=== PATIENT | female | born 1980 | race Caucasian/White ===

== ENCOUNTER → 2016-07-08 | Outpatient (CLI) | payer MEDICAID ==
[2016-07-08 17:11] LABS: CHLORIDE,CL 111 mmol/L (98-110); SODIUM,NA 142 mmol/L (136-146)
== END ==
LOC: MW.CHFP 16:15
PROVIDERS: ATTEND Physician Assistant
DX: Z01.812 Encounter for preprocedural laboratory examination (principal)
CPT/HCPCS: 36415; 80048; 81025; 85025

== ENCOUNTER 2016-07-14 09:39 | Day surgery (SDC) | payer MEDICAID ==
[~2016-07-14 09:39] MED LIST: Lactated Ringers 1,000 ML IV SCH; Lidocaine 2% 5 ML SDV ONE; Midazolam 1 MG/ML 2 ML SDV ONE; Propofol 200 MG/20 ML SDV ONE; ceFAZolin 2 GM in Premix Bag 1 BAG IV SCH; fentaNYL 100 MCG/2 ML SDV ONE
--- NOTE | 2016-07-14 10:39 | PCM.PREANE ---
Preanesthetic Assessment - Anesthesia/Transfusion/Family Hx Anesthesia History: Prior Anesthesia Without Reaction Family History of Anesthesia Reaction: No Transfusion History: No Prior Transfusion(s) Intubation History: Unknown - Review of Systems General: No Symptoms Pulmonary: No Symptoms Cardiovascular: No Symptoms Gastrointestinal: No symptoms Neurological: No Symptoms Other: Reports: None - Physical Assessment Height: 1.64 m Weight: 132.449 kg ASA Class: 2 Mental Status: Alert & Oriented x3 Airway Class: Mallampati = 2 Dentition: Reports: Normal Dentition Thyro-Mental Finger Breadths: 3 Mouth Opening Finger Breadths: 3 ROM/Head Extension: Full Lungs: Clear to auscultation, Normal respiratory effort Cardiovascular: Regular Rate, Regular Rhythm - Allergies Allergies/Adverse Reactions: Allergies Allergy/AdvReac Type Severity Reaction Status Date / Time latex Allergy Rash Verified 07/10/16 12:50 miconazole Allergy Rash Verified 07/10/16 12:50 [From Neosporin AF] NSAIDS (Non-Steroidal Allergy Other Verified 07/10/16 12:50 Anti-Inflamma tramadol Allergy Vomiting Verified 07/10/16 12:50 paper tape Allergy Rash Uncoded 07/10/16 12:50 - Blood Blood Available: No - Anesthesia Plan Pre-Op Medication Ordered: None - Acknowledgements Anesthesia Type Planned: General Anesthesia Pt an Appropriate Candidate for the Planned Anesthesia: Yes Alternatives and Risks of Anesthesia Discussed w Pt/Guardian: Yes Pt/Guardian Understands and Agrees with Anesthesia Plan: Yes PreAnesthesia Questionnaire HEENT History: Reports: Allergic rhinitis Cardiovascular History: Reports: None Respiratory History: Reports: Asthma Other Respiratory History: exercised induced, has had not had trouble for years Gastrointestinal History: Reports: None Genitourinary History: Reports: None 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 Musculoskeletal History: Reports: Fracture (right ankle), Fibromyalgia Neurological History: Reports: None Psychiatric History: Reports: None Endocrine/Metabolic History: Reports: Obesity/BMI 30+, Other (see below) Other Endocrine/Metabolic History: has Systemic Lupus Erythematosus Hematologic History: Reports: Other (see below) Other Hematologic History: Factor V Leiden deficiency Immunologic History: Reports: SLE (not on any medications for years, occasional nauzea and joint swelling) Oncologic (Cancer) History: Reports: None Dermatologic History: Reports: None - Past Surgical History Head Surgeries/Procedures: Reports: None HEENT Surgical History: Reports: Oral surgery Other HEENT Surgeries/Procedures: wisdom teeth Cardiovascular Surgical History: Reports: None Respiratory Surgical History: Reports: None GI Surgical History: Reports: None Female Surgical History: Reports: D&C Endocrine Surgical History: Reports: None Neurological Surgical History: Reports: None Musculoskeletal Surgical History: Reports: None Oncologic Surgical History: Reports: None - SUBSTANCE USE Smoking Status *Q: Former Smoker Tobacco Use Within Last Twelve Months: Cigarettes Recreational Drug Use History: No - HOME MEDS Home Medications: Home Meds Hydrocodone/Acetaminophen [Hydrocodon-Acetaminophn 10-325] 1 tab PO ASDIRECTED PRN 07/10/16 [History] - CURRENT (IN HOUSE) MEDS Current Meds: Current Medications Hydrocodone Bitart/Acetaminophen ([place] 325-10 Mg) 1 - 2 tab PO Q4H PRN PRN Reason: Pain Lactated Ringer's (Ringers, Lactated) 1,000 mls @ 100 mls/hr IV ASDIRECTED COMPA Last Admin: 07/14/16 06:30 Dose: 100 mls/hr Cefazolin Sodium/Dextrose 2 gm (/ Premix) 50 mls @ 100 mls/hr IV ONCALL [facility] Discontinued Medications Fentanyl (Sublimaze) Confirm Administered Dose 100 mcg .ROUTE .STK-MED ONE Stop: 07/14/16 09:07 Lidocaine (Xylocaine-Mpf 2%) Confirm Administered Dose 5 ml .ROUTE .STK-MED ONE Stop: 07/14/16 09:07 Midazolam HCl (Versed 1 Mg/Ml) Confirm Administered Dose 2 mg .ROUTE .STK-MED ONE Stop: 07/14/16 09:07 Propofol (Diprivan 20 Ml) Confirm Administered Dose 200 mg .ROUTE .STK-MED ONE Stop: 07/14/16 09:07
[2016-07-14] MEDS ORDERED: HYDROmorphone 2 MG/ML Syringe ONE ×2 (11:39→12:03)
[2016-07-14] MEDS ORDERED: Ondansetron 4 MG/2 ML SDV ONE (12:24)
--- NOTE | 2016-07-14 12:44 | PCM.OPNOTE ---
- General Post-Op/Procedure Note Date of Surgery/Procedure: 07/14/16 Operative Procedure(s): ORIF right distal fibula Post-Op Diagnosis: R distal fibula fracture Anesthesia Technique: General ET tube Primary Surgeon: Flora Braga Software Requirements Engineer: Zuleyka Funk in mLs: 25 Condition: Good Free Text/Narrative:: tt=10 min #[id number]
[2016-07-14] MEDS: fentaNYL 100 MCG/2 ML SDV IVPUSH PRN ×2 (13:11→13:18)
--- NOTE | 2016-07-14 15:00 | PCM48HPAN ---
Post Anesthesia Note - EVALUATION WITHIN 48HRS OF ANESTHETIC Vital Signs in Normal Range: Yes Patient Participated in Evaluation: Yes Respiratory Function Stable: Yes Airway Patent: Yes Cardiovascular Function Stable: Yes Hydration Status Stable: Yes Pain Control Satisfactory: Yes Nausea and Vomiting Control Satisfactory: Yes Mental Status Recovered: Yes - COMMENTS/OBSERVATIONS Free Text/Narrative:: Pain well controlled. Improving N/V.
--- NOTE | 2016-07-14 16:19 | CR ---
EXAMINATION: Right ankle HISTORY: ORIF COMPARISON: 07/06/2016 TECHNIQUE: 5 fluoroscopic images provided. FINDINGS/IMPRESSION: Intraoperative control films demonstrate screw and plate fixation of a distal f ibular fracture in near-anatomic alignment.
[2016-07-14] MEDS ORDERED: Ondansetron 4 MG/2 ML SDV IVPUSH ONE (16:22)
[2016-07-14] MEDS ORDERED: Promethazine 25 MG/ML SDV IM ONE (16:45)
[2016-07-14] MEDS: Acetaminophen/HYDROcodone 325-10 MG Tab PO PRN ×2 (17:09→21:14)
[2016-07-14] MEDS ORDERED: Ondansetron 4 MG Tab PO PRN (17:15)
[2016-07-14] MEDS ORDERED: Lactated Ringers 1,000 ML IV SCH (17:15)
--- NOTE | 2016-07-14 17:47 | PCM.SN ---
- Free Text/Narrative Note: Called by Hortensia MOON, pt continues to have severe N/V. She has been unable to get out of the bed post op. Pt states she is hurting, but doesn't want to take any pain medications right now. Phenergan 12.5mg IM and [place] 10/325 x 1 was eventually also given. Pt states her nausea is a little better. Pt was able to finally ambulate with assistance one time to the bathroom. Will be transferred to [facility] for continued observation.
--- NOTE | 2016-07-14 21:34 | OR ---
SURGEON: Flora Braga MD DATE OF PROCEDURE: 07/14/2016 PREOPERATIVE DIAGNOSIS: Right distal fibula fracture, unstable. POSTOPERATIVE DIAGNOSIS: Right distal fibula fracture, unstable. PROCEDURE: Open reduction and internal fixation, right distal fibula. TANK OPERATOR: Zuleyka Funk PA-C and Joaquín Irizarry PA-C. ANESTHESIA: General. ESTIMATED BLOOD LOSS: 25 mL. TOURNIQUET TIME: 10 minutes. COMPLICATIONS: None. DVT PROPHYLAXIS: PAS boot to the nonoperative leg. IMPLANTS USED: Richa distal fibula plate with combination of 3.5 mm locking and nonlocking screws. BRIEF HISTORY: Consent under is a 35-year-old female who injured her right ankle last week. X- rays obtained showed a displaced right distal fibula fracture with widening of the medial ankle mortise. At that time, I recommended surgical treatment. Risks and goals of procedure were discussed with the patient and documented preoperatively. She was evaluated preoperatively by a primary care provider, as she does have a history of factor 5 Leiden mutation. They recommended that the patient be started on Lovenox after the surgery until she her cast is discontinued. DESCRIPTION OF PROCEDURE: The patient was properly identified and brought to the operating room. She was transferred from the OR cart and placed on the operating table in supine position. General anesthesia was administered. After adequate anesthesia was obtained, a well-padded tourniquet was applied to the right lower extremity. The right lower extremity was then prepped in standard fashion using ChloraPrep solution. It was then sterilely draped. A time-out was performed to ensure correct site and procedure. Preoperative antibiotics were given. The surgical site had been marked preoperatively. An Esmarch was used to exsanguinate the right lower extremity and the tourniquet was inflated to 250 mmHg. An incision was made over the lateral aspect of the ankle. As the subcutaneous tissues were being dissected, she did have extensive bleeding. There was a large vein that was identified and the ends of the vein were tied off. She continued to have quite a bit of oozing from the wound and the tourniquet was inflated to 300 mmHg, as it appeared to be a venous tourniquet. I continued dissecting through the soft tissues looking for the superficial peroneal nerve. This was not encountered. She continued to have quite a bit of oozing and the tourniquet was deflated at the 10 minute point. There was minimal bleeding once the tourniquet was deleted. The fracture was then identified. The fracture hematoma was evacuated with irrigation. The fracture was then reapproximated using a bone reduction clamp. Interfragmentary screw was then placed, which provided good provisional fixation. The short distal fibula plate was then placed onto the distal fibula. The C-arm showed adequate positioning of the plate also showed good reduction the fracture with spiritism of the fibular length. A 3.5 mm locking screws were used distally and 3.5 mm nonlocking screws were used proximally. Final C-arm images confirmed good position of the plate and hardware. The ankle mortise was symmetric. I did use live fluoroscopy to check the syndesmosis following reduction of the fracture. I did use live fluoroscopy with both an external rotation stress view and a bone hook. No widening of the syndesmosis was noted. The wound was then copiously irrigated with saline solution. The deep tissues were closed with 0 Vicryl. The subcutaneous tissues were closed with 2-0 Vicryl and the skin was closed with lul. Xeroform gauze was placed over the wound and a bulky dressing was applied. She was then placed into a well-padded posterior splint with medial and lateral stabilizing slabs. The patient was awakened from her anesthetic and transferred back to the operating room cart. She was brought to recovery room in stable condition. All needle and sponge counts were correct. JULES / BRYANT /[id number]
[2016-07-14 22:09] VITALS: BP 174/95
== END 2016-07-14 22:00 | disposition home or self-care (01) ==
LOC: MW.SDS 09:39 → MW.MS 16:50 → MW.SDS 22:00
PROVIDERS: ATTEND Orthopaedic Surgery
PROC: 0QSG04Z Reposition Right Tibia with Internal Fixation Device, Open Approach (ICD-10-PCS; principal; 2016-07-14)
DX: S82.831A Other fracture of upper and lower end of right fibula, initial encounter for closed fracture (principal); D68.51 Activated protein C resistance; M32.9 Systemic lupus erythematosus, unspecified; J45.909 Unspecified asthma, uncomplicated; F17.210 Nicotine dependence, cigarettes, uncomplicated; E66.9 Obesity, unspecified; Z88.1 Allergy status to other antibiotic agents; Z88.6 Allergy status to analgesic agent; Z91.040 Latex allergy status; Z91.048 Other nonmedicinal substance allergy status; Z98.890 Other specified postprocedural states; Z68.42 Body mass index [BMI] 45.0-49.9, adult
CPT/HCPCS: 27792; 76000; 81025; A9270; C1713; J0690; J1170; J2250; J2405; J2550; J3010; J7120; 01480; J2704

== ENCOUNTER 2016-07-15 18:46 | Emergency (ER) | payer MEDICAID ==
--- NOTE | 2016-07-15 21:10 | EDM.PDOC ---
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 right lower leg Pain Score (Numeric/FACES): 10 - Related Data Allergies Allergy/AdvReac Type Severity Reaction Status Date / Time latex Allergy Rash Verified 07/15/16 19:07 miconazole Allergy Rash Verified 07/15/16 19:07 [From Neosporin AF] NSAIDS (Non-Steroidal Allergy Other Verified 07/15/16 19:07 Anti-Inflamma tramadol Allergy Vomiting Verified 07/15/16 19:07 paper tape Allergy Rash Uncoded 07/15/16 19:07 Home Meds: Home Meds Hydrocodone/Acetaminophen [Hydrocodon-Acetaminophn 10-325] 1 tab PO ASDIRECTED PRN #80 tablet 07/14/16 [Rx] Past Medical History HEENT History: Reports: Allergic rhinitis Cardiovascular History: Reports: None Respiratory History: Reports: Asthma Other Respiratory History: exercised induced, has had not had trouble for years Gastrointestinal History: Reports: None Genitourinary History: Reports: None 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 Musculoskeletal History: Reports: Fracture, Fibromyalgia Neurological History: Reports: None Psychiatric History: Reports: None Endocrine/Metabolic History: Reports: Obesity/BMI 30+, Other (see below) Other Endocrine/Metabolic History: has Systemic Lupus Erythematosus Hematologic History: Reports: Other (see below) Other Hematologic History: Factor V Leiden deficiency Immunologic History: Reports: SLE Oncologic (Cancer) History: Reports: None Dermatologic History: Reports: None - Infectious Disease History Infectious Disease History: Reports: None - Past Surgical History Head Surgeries/Procedures: Reports: None HEENT Surgical History: Reports: Oral surgery Other HEENT Surgeries/Procedures: wisdom teeth Cardiovascular Surgical History: Reports: None Respiratory Surgical History: Reports: None GI Surgical History: Reports: None Female Surgical History: Reports: D&C Endocrine Surgical History: Reports: None Neurological Surgical History: Reports: None Musculoskeletal Surgical History: Reports: None Oncologic Surgical History: Reports: None Social & Family History - Family History Family Medical History: Noncontributory - Tobacco Use Smoking Status *Q: Former Smoker Years of Tobacco use: 5 Packs/Tins Daily: 1 Used Tobacco, but Quit: No - Recreational Drug Use Recreational Drug Use: No Drug Use in Last 12 Months: No Review of Systems - Review of Systems Review Of Systems: ROS reveals no pertinent complaints other than HPI. Trauma Exam - Physical Exam Exam: See Below Exam Limited By: Other (pain) General Appearance: Reports: alert, severe distress (Due to right lower external the pain) Head: Reports: atraumatic, normocephalic Ears: Reports: normal external exam Nose: Reports: normal inspection Throat/Mouth: Reports: Normal inspection Neck: Reports: full range of motion Respiratory Exam: Reports: no respiratory distress, lungs clear, normal breath sounds Cardiovascular: Reports: normal peripheral pulses, regular rate, rhythm, no murmur GI/Abdominal: Reports: Soft Extremities: Other (Right lower leg is swollen and exquisitely tender. The lateral surgical site is mildly erythematous but no exudate. Pedal and posttibial pulses are strong and CMS is intact distally full range of motion of the toes without hesitation or limitation.) Skin: Reports: Normal color, Warm/dry Course - Vital Signs Last Recorded V/S: Last Vital Signs Temp 36.8 C 07/15/16 19:08 Pulse 90 07/15/16 21:38 Resp 18 07/15/16 21:38 BP 146/91 H 07/15/16 21:38 Pulse Ox 98 07/15/16 21:38 - Orders/Labs/Meds Meds: Medications Discontinued Medications Generic Name Dose Route Start Last Admin Trade Name Freq PRN Reason Stop Dose Admin Morphine Sulfate 10 mg 07/15/16 21:11 07/15/16 21:27 Morphine IM 07/15/16 21:12 10 mg ONETIME ONE Administration - Re-Assessments/Exams Free Text/Narrative Re-Assessment/Exam: 07/15/16 21:03 Dr. Thompson visited with Dr. Braga. Dr. Braga indicated that she was aware of the patient's postoperative pain. Her orders included pain medication in the emergency room, home with Percocet, elevate and see her in the a.m. in the clinic. Departure - Departure Time of Disposition: 21:16 Disposition: Home, Self-Care 01 Condition: fair Clinical Impression: Post-operative pain - Discharge Information Instructions: Pain Relief Preoperatively and Postoperatively Referrals: Flora Braga MD [Primary Care Provider] - Forms: ED Department Discharge Additional Instructions: 1. Elevate right lower extremity well above heart level at all times. 2. Cool packs 20 minutes every 3-4 hours 3. Take your pain medication every 4 hours as directed 4. See Dr. Braga in her clinic tomorrow morning. <ThompsonPao - Last Filed: 07/16/16 00:10> ED HPI GENERAL MEDICAL PROBLEM - History of Present Illness INITIAL COMMENTS - FREE TEXT/NARRATIVE: And history of present illness was inadvertently omitted on the document by the mid-level provider. This is Dr. Thompson and I have personally seen and evaluated the patient with the mid-level provider. The patient underwent surgery with Dr. Braga yesterday and contacted her to 2 increased pain and a prescription was called in for her and he did receive pain medications at another institution. She presented here today because of the persistent pain and concern. Physical exam is as described and on my personal valuation there was redness at the surround of the incision area and there is some dependent edema but there is no fluctuance or drainage appreciated and no streaking up the leg. The patient is nontoxic and afebrile. I did discuss this case with Dr. Braga and she will see the patient in the clinic tomorrow and requests that no labs or antibiotics be given at this time and she will reevaluate in the morning. They do give the patient something for pain here and a prescription for home.
[2016-07-15] MEDS ORDERED: Morphine 10 MG/ML Syringe IM ONE (21:11)
[2016-07-15 21:47] VITALS: BP 146/91
== END 2016-07-15 21:38 | disposition home or self-care (01) ==
LOC: MW.ED 18:46
DX: G89.18 Other acute postprocedural pain (principal); J45.909 Unspecified asthma, uncomplicated; E66.9 Obesity, unspecified; M32.9 Systemic lupus erythematosus, unspecified; Z87.891 Personal history of nicotine dependence; Z88.5 Allergy status to narcotic agent; Z88.8 Allergy status to other drugs, medicaments and biological substances; Z91.040 Latex allergy status
CPT/HCPCS: 96372; 99283; J2270; 99284

== ENCOUNTER → 2016-07-24 | Outpatient (CLI) | payer MEDICAID ==
--- NOTE | 2016-07-24 13:56 | CR ---
EXAMINATION: Right ankle HISTORY: Pain COMPARISON: 07/06/2016 TECHNIQUE: 3 views FINDINGS/IMPRESSION: There is screw and plate fixation of the distal fibula. Ankle mortise and talar dome appear grossly preserved. Cast material obscures fine detail.
== END ==
LOC: MW.CHORTHO 07:42
PROVIDERS: ATTEND Physician Assistant
DX: M25.571 Pain in right ankle and joints of right foot (principal); Z96.7 Presence of other bone and tendon implants
CPT/HCPCS: 73610-26-RT; 73610-RT

== ENCOUNTER 2016-10-20 10:19 | Day surgery (SDC) | payer MEDICAID ==
[~2016-10-20 10:19] MED LIST changes: +Acetaminophen/HYDROcodone 325-5 MG Tab PO PRN; -Lidocaine 2% 5 ML SDV ONE; -Midazolam 1 MG/ML 2 ML SDV ONE; -Propofol 200 MG/20 ML SDV ONE; -fentaNYL 100 MCG/2 ML SDV ONE
[2016-10-20] MEDS ORDERED: Ondansetron 4 MG/2 ML SDV ONE (11:04)
[2016-10-20] MEDS ORDERED: Dexamethasone 4 MG/ML 5 ML MDV ONE (11:04)
[2016-10-20] MEDS ORDERED: fentaNYL 250 MCG/5 ML SDV ONE (11:04)
[2016-10-20] MEDS ORDERED: Midazolam 1 MG/ML 2 ML SDV ONE (11:04)
[2016-10-20] MEDS ORDERED: Propofol 200 MG/20 ML SDV ONE ×5 (11:04→12:22)
[2016-10-20] MEDS ORDERED: Scopolamine 1.5 MG Transdermal Patch TRDERM PRN (11:22)
--- NOTE | 2016-10-20 11:26 | PCM.PREANE ---
Preanesthetic Assessment - Anesthesia/Transfusion/Family Hx Anesthesia History: Prior Anesthesia Reaction (PONV) Type of Anesthesia Reaction: Excessive Nausea/Vomiting Transfusion History: No Prior Transfusion(s) Intubation History: Unknown - Review of Systems General: No Symptoms Pulmonary: No Symptoms Cardiovascular: No Symptoms Gastrointestinal: No Symptoms Neurological: No Symptoms Other: Reports: None - Physical Assessment NPO Status Date: 10/19/16 NPO Status Time: 23:30 O2 Sat by Pulse Oximetry: 97 Respiratory Rate: 16 Vital Signs: Last Vital Signs Temp 36.8 C 10/20/16 10:40 Pulse 69 10/20/16 10:40 Resp 16 10/20/16 10:40 BP 134/70 10/20/16 10:40 Pulse Ox 97 10/20/16 10:40 Height: 1.63 m Weight: 129.274 kg ASA Class: 2 Mental Status: Alert & Oriented x3 Dentition: Reports: Normal Dentition ROM/Head Extension: Full Lungs: Clear to Auscultation, Normal Respiratory Effort Cardiovascular: Regular Rate, Regular Rhythm - Lab Values: Laboratory Last Values WBC 6.53 K/uL (4.0-11.0) 10/20/16 10:55 RBC 4.47 M/uL (4.30-5.90) 10/20/16 10:55 Hgb 12.7 g/dL (12.0-16.0) 10/20/16 10:55 Hct 37.9 % (36.0-46.0) 10/20/16 10:55 MCV 84.8 fL (80.0-98.0) 10/20/16 10:55 MCH 28.4 pg (27.0-32.0) 10/20/16 10:55 MCHC 33.5 g/dL (31.0-37.0) 10/20/16 10:55 RDW Std Deviation 37.5 fl (28.0-62.0) 10/20/16 10:55 RDW Coeff of Lauren 12 % (11.0-15.0) 10/20/16 10:55 Plt Count 250 K/uL (150-400) 10/20/16 10:55 MPV 10.60 fL (7.40-12.00) 10/20/16 10:55 Neut % (Auto) 51.0 % (48.0-80.0) 10/20/16 10:55 Lymph % (Auto) 37.7 % (16.0-40.0) 10/20/16 10:55 [place] % (Auto) 9.0 % (0.0-15.0) 10/20/16 10:55 Eos % (Auto) 2.0 % (0.0-7.0) 10/20/16 10:55 Baso % (Auto) 0.3 % (0.0-1.5) 10/20/16 10:55 Neut # (Auto) 3.3 K/uL (1.4-5.7) 10/20/16 10:55 Lymph # (Auto) 2.5 K/uL (0.6-2.4) H 10/20/16 10:55 [place] # (Auto) 0.6 K/uL (0.0-0.8) 10/20/16 10:55 Eos # (Auto) 0.1 K/uL (0.0-0.7) 10/20/16 10:55 Baso # (Auto) 0.0 K/uL (0.0-0.1) 10/20/16 10:55 Nucleated RBC % 0.8 /100WBC 10/20/16 10:55 Nucleated RBCs # 0 K/uL 10/20/16 10:55 Urine HCG, Qual NEGATIVE (NEGATIVE) 10/20/16 10:40 - Allergies Allergies/Adverse Reactions: Allergies Allergy/AdvReac Type Severity Reaction Status Date / Time latex Allergy Rash Verified 07/15/16 19:07 miconazole Allergy Rash Verified 07/15/16 19:07 [From Neosporin AF] NSAIDS (Non-Steroidal Allergy Other Verified 07/15/16 19:07 Anti-Inflamma tramadol Allergy Vomiting Verified 07/15/16 19:07 paper tape Allergy Rash Uncoded 07/15/16 19:07 - Acknowledgements Anesthesia Type Planned: General Anesthesia Pt an Appropriate Candidate for the Planned Anesthesia: Yes Alternatives and Risks of Anesthesia Discussed w Pt/Guardian: Yes Pt/Guardian Understands and Agrees with Anesthesia Plan: Yes PreAnesthesia Questionnaire HEENT History: Reports: Allergic Rhinitis Cardiovascular History: Reports: None Respiratory History: Reports: Asthma Other Respiratory History: exercised induced, has had not had trouble for years Gastrointestinal History: Reports: None Genitourinary History: Reports: None MUSIC INTERNSHIP History: Reports: None Musculoskeletal History: Reports: Fracture (R ankle), Fibromyalgia Other Musculoskeletal History: hx of fx right ankle Neurological History: Reports: None Psychiatric History: Reports: Anxiety Endocrine/Metabolic History: Reports: Obesity/BMI 30+, Other (See Below) Other Endocrine/Metabolic History: has Systemic Lupus Erythematosus Hematologic History: Reports: Other (See Below) (Factor V deficiency, denies post op clot, lovonox ordered per surgeon) Other Hematologic History: Factor V Leiden deficiency Immunologic History: Reports: SLE Oncologic (Cancer) History: Reports: None Dermatologic History: Reports: None - Infectious Disease History Infectious Disease History: Reports: None - Past Surgical History Head Surgeries/Procedures: Reports: None HEENT Surgical History: Reports: Oral Surgery Other HEENT Surgeries/Procedures: wisdom teeth Cardiovascular Surgical History: Reports: None Respiratory Surgical History: Reports: None GI Surgical History: Reports: None Female Surgical History: Reports: D&C Endocrine Surgical History: Reports: None Neurological Surgical History: Reports: None Musculoskeletal Surgical History: Reports: None, ORIF Other Musculoskeletal Surgeries/Procedures:: right ankle Oncologic Surgical History: Reports: None - SUBSTANCE USE Smoking Status *Q: Current Some Day Smoker Tobacco Use Within Last Twelve Months: Cigarettes Recreational Drug Use History: No - CURRENT (IN HOUSE) MEDS Current Meds: Current Medications Hydrocodone Bitart/Acetaminophen ([place] 325-5 Mg) 1 - 2 tab PO Q4H PRN PRN Reason: Pain Lactated Ringer's (Ringers, Lactated) 1,000 mls @ 100 mls/hr IV ASDIRECTED COMPA Last Admin: 10/20/16 10:44 Dose: 100 mls/hr Cefazolin Sodium/Dextrose 2 gm (/ Premix) 50 mls @ 100 mls/hr IV ONETIME COMPA Discontinued Medications Dexamethasone (Dexamethasone) Confirm Administered Dose 20 mg .ROUTE .STK-MED ONE Stop: 10/20/16 11:05 Fentanyl (Sublimaze) Confirm Administered Dose 250 mcg .ROUTE .STK-MED ONE Stop: 10/20/16 11:05 Lidocaine HCl (Xylocaine-Mpf 1%) Confirm Administered Dose 5 ml .ROUTE .STK-MED ONE Stop: 10/20/16 11:05 Midazolam HCl (Versed 1 Mg/Ml) Confirm Administered Dose 2 mg .ROUTE .STK-MED ONE Stop: 10/20/16 11:05 Ondansetron HCl (Zofran) Confirm Administered Dose 4 mg .ROUTE .STK-MED ONE Stop: 10/20/16 11:05 Propofol (Diprivan 20 Ml) Confirm Administered Dose 200 mg .ROUTE .STK-MED ONE Stop: 10/20/16 11:05
[2016-10-20] MEDS ORDERED: Scopolamine 1.5 MG Transdermal Patch ONE (11:28)
--- NOTE | 2016-10-20 11:35 | PCM.SN ---
- Free Text/Narrative Note: pt examined, chart reviewed, case discussed with AUTO HEATER MECHANIC. PMH: PONV, asthma( exercise induces). 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 Having hardware removal for post op wound infection/dehissance. Plan : multiple antiemetics + propofol TIV.
[2016-10-20] MEDS ORDERED: ceFAZolin 1 GM Vial ONE (11:55)
[2016-10-20] MEDS ORDERED: Ketorolac 30 MG/ML SDV ONE (12:09)
--- NOTE | 2016-10-20 12:51 | PCM.OPNOTE ---
- General Post-Op/Procedure Note Date of Surgery/Procedure: 10/20/16 Operative Procedure(s): ED R ankle to muscle. HWR R ankle Post-Op Diagnosis: Nonhealing wound right ankle. Retained HW R ankle, s/p ORIF Anesthesia Technique: General LMA Primary Surgeon: Flora Braga Pari [employer] Ticket Seller: Joaquín Irizarry in mLs: 5 Condition: Good Free Text/Narrative:: tt=29 min #[id number]
[2016-10-20] MEDS ORDERED: fentaNYL 100 MCG/2 ML SDV IVPUSH PRN (13:04)
[2016-10-20] MEDS ORDERED: fentaNYL 100 MCG/2 ML SDV ONE (13:05)
--- NOTE | 2016-10-20 13:22 | PCM.POSTAN ---
POST ANESTHESIA ASSESSMENT - MENTAL STATUS Mental Status: Alert - RESPIRATORY Respiratory Status: Respiratory Rate WNL, Airway Patent, O2 Saturation Stable - CARDIOVASCULAR CV Status: Pulse Rate WNL, Blood Pressure Stable - GASTROINTESTINAL GI Status: No Symptoms - PAIN Pain Score: 0 - POST OP HYDRATION Hydration Status: Adequate & Stable - OBSERVATIONS Free Text/Narrative:: No N/V at this time.
--- NOTE | 2016-10-20 13:34 | CR ---
Procedural fluoroscopy 6.6 seconds of fluoroscopy time was used at operative procedure for orthopedic procedure. Impression: Procedural fluoroscopy as above
[2016-10-20 14:13] VITALS: BP 129/65
--- NOTE | 2016-10-20 14:27 | PCM48HPAN ---
Post Anesthesia Note - EVALUATION WITHIN 48HRS OF ANESTHETIC Vital Signs in Normal Range: Yes Patient Participated in Evaluation: Yes Respiratory Function Stable: Yes Airway Patent: Yes Cardiovascular Function Stable: Yes Hydration Status Stable: Yes Pain Control Satisfactory: Yes Nausea and Vomiting Control Satisfactory: Yes Mental Status Recovered: Yes
--- NOTE | 2016-10-20 19:28 | OR ---
SURGEON: Flora Braga MD DATE OF PROCEDURE: 10/20/2016 PREOPERATIVE DIAGNOSES: 1. Nonhealing wound, right ankle. 2. Retained hardware, right distal fibula, status post open reduction and internal fixation. POSTOPERATIVE DIAGNOSES: 1. Nonhealing wound, right ankle. 2. Retained hardware, right distal fibula, status post open reduction and internal fixation. PROCEDURE: 1. Excisional debridement, right ankle to muscle. 2. Hardware removal, right ankle, deep implant. SEAM RUBBING MACHINE OPERATOR: Joaquín Irizarry PA-C. ANESTHESIA: General. ESTIMATED BLOOD LOSS: 5 mL. TOURNIQUET TIME: 29 minute. COMPLICATIONS: None. DVT PROPHYLAXIS: Not indicated. IMPLANTS USED: None. BRIEF HISTORY: Renea is a 35-year-old female, who sustained a fracture of the distal fibula. She subsequently underwent open reduction and internal fixation of the distal fibula. She healed the fracture, however has had a persistent open wound over the midportion of her lateral incision. She was treated with a week of IV Cubicin which did help with her erythema and induration, however the wound persisted. I did recommend removal of the hardware with the debridement of the nonhealing wound. My concern was that she may develop osteomyelitis if this is left untreated. The risks and goals of the procedure were discussed with the patient and were documented preoperatively. She agreed to proceed. DESCRIPTION OF PROCEDURE: The patient was properly identified and brought to the operating room. She was transferred from the OR cart and placed on the operating table in supine position. General anesthesia was administered. After adequate anesthesia was obtained, a well-padded tourniquet was applied to the right lower extremity. The right lower extremity was then prepped in standard fashion using Betadine solution. It was then sterilely draped. A time-out was performed to ensure correct site and procedure. Preoperative antibiotics were given. The surgical site had been marked preoperatively. The tourniquet was inflated to 250 mmHg. An incision was made over the lateral aspect of the ankle. The open area measured approximately 8 mm x 10 mm. Fibrinous tissue was at the base and no hardware was exposed. The incision was extended in a distal and proximal fashion over the site of the previous incision. The subcutaneous tissues were incised and the plate was immediately visualized. The screws were then removed without difficulty including the interfragmentary screw. The plate was then removed as well. The fracture was well healed. The edges of the skin near the site of the open wound were debrided with a rongeur. A 15 blade scalpel was used to freshen the wound edges. The wound was then copiously irrigated with 6 L of normal saline using a Pulsavac circuit board inspector. At the completion, the wound was very clean. I did not note any sign of infection throughout the procedure and I elected not to do cultures as the wound bed did appear clean. The deep tissues were then closed with 0 Monocryl. The subcutaneous tissues were closed with 2-0 Monocryl and the skin was closed with lul. The tourniquet was then deflated. Xeroform gauze was placed over the wound and a bulky dressing was applied. She was awaken from her anesthetic and transferred back to the operating room cart. She was brought to recovery room in stable condition. All needle and sponge counts were correct. JULES / BRYANT /[id number]
== END 2016-10-20 14:15 | disposition home or self-care (01) ==
LOC: MW.SDS 10:19
PROVIDERS: ATTEND Orthopaedic Surgery
DX: T81.89XA Other complications of procedures, not elsewhere classified, initial encounter (principal); S82.831D Other fracture of upper and lower end of right fibula, subsequent encounter for closed fracture with routine healing; F17.210 Nicotine dependence, cigarettes, uncomplicated; J45.909 Unspecified asthma, uncomplicated; M32.9 Systemic lupus erythematosus, unspecified; D68.62 Lupus anticoagulant syndrome; D68.2 Hereditary deficiency of other clotting factors; F41.9 Anxiety disorder, unspecified; Z86.718 Personal history of other venous thrombosis and embolism; E66.9 Obesity, unspecified; Z88.1 Allergy status to other antibiotic agents; Z88.6 Allergy status to analgesic agent; Z88.8 Allergy status to other drugs, medicaments and biological substances; Z91.040 Latex allergy status; Z91.048 Other nonmedicinal substance allergy status; Z98.890 Other specified postprocedural states; Z68.42 Body mass index [BMI] 45.0-49.9, adult
CPT/HCPCS: 20680; 36415; 76000; 81025; 85025; 85652; 86140; A9270; J0690; J1100; J1885; J2250; J2405; J3010; J7120; 01480; 88300; J2704

== ENCOUNTER 2016-11-12 09:01 | Day surgery (SDC) | payer OTHER ==
[~2016-11-12 09:01] MED LIST changes: +DAPTOmycin 500 MG in Sodium Chloride 0.9% 10 ML IVPUSH SCH; +Lidocaine 2% 5 ML SDV ONE; +Midazolam 1 MG/ML 2 ML SDV ONE; +Ondansetron 4 MG/2 ML SDV ONE; +Propofol 200 MG/20 ML SDV ONE; +fentaNYL 100 MCG/2 ML SDV IVPUSH PRN; +fentaNYL 250 MCG/5 ML SDV ONE
--- NOTE | 2016-11-12 10:12 | PCM.PREANE ---
Preanesthetic Assessment - Procedure Proposed Procedure: Right ankle open wound treatment - Anesthesia/Transfusion/Family Hx Anesthesia History: Prior Anesthesia Without Reaction Family History of Anesthesia Reaction: No Intubation History: Unknown Additional History: Factor V deficiency, Lupus, Asthma, Fibromyalgia, Obesity and non-healing wound/ compliance issues; and multiple drug allergies. - Review of Systems General: Other (Obesity. fibromyalgia) Pulmonary: Other (hx asthma- exercise induced) Cardiovascular: No Symptoms Gastrointestinal: No Symptoms Neurological: Difficulty Walking (due to ankle) Other: Reports: None - Physical Assessment NPO Status Date: 11/11/16 NPO Status Time: 23:00 Height: 5 ft 4 in Weight: 290 lb ASA Class: 3 Mental Status: Alert & Oriented x3 Airway Class: Mallampati = 1 Dentition: Reports: Normal Dentition Thyro-Mental Finger Breadths: 3 (short neck) Mouth Opening Finger Breadths: 3 ROM/Head Extension: Full Lungs: Clear to Auscultation, Normal Respiratory Effort Cardiovascular: Regular Rate, Regular Rhythm, No Murmurs Other: PICC line right arm; one port in use - Lab Values: Laboratory Last Values Urine HCG, Qual NEGATIVE (NEGATIVE) 11/12/16 09:04 - Allergies Allergies/Adverse Reactions: Allergies Allergy/AdvReac Type Severity Reaction Status Date / Time ketorolac [From Toradol] Allergy due to Verified 11/11/16 12:17 blood clotting disoder latex Allergy Rash Verified 11/11/16 12:14 NSAIDS (Non-Steroidal Allergy due to Verified 11/11/16 12:16 Anti-Inflamma blood clotting disorder Tetracyclines Allergy Nausea and Verified 11/11/16 12:16 Vomiting tramadol Allergy Nausea and Verified 11/11/16 12:17 Vomiting paper tape Allergy Blisters Uncoded 11/11/16 12:16 - Blood Blood Available: No Product(s) Available: None - Acknowledgements Anesthesia Type Planned: General Anesthesia Pt an Appropriate Candidate for the Planned Anesthesia: Yes Alternatives and Risks of Anesthesia Discussed w Pt/Guardian: Yes Pt/Guardian Understands and Agrees with Anesthesia Plan: Yes PreAnesthesia Questionnaire HEENT History: Reports: None Respiratory History: Reports: Other (See Below) Other Respiratory History: sports induced asthma Genitourinary History: Reports: None CARGOMAN History: Reports: Musculoskeletal History: Reports: Fracture, Fibromyalgia Endocrine/Metabolic History: Reports: Obesity/BMI 30+ Hematologic History: Reports: Other (See Below) Other Hematologic History: factor V clotting disorder Immunologic History: Reports: Other (See Below) Other Immunologic History: Lupus Dermatologic History: Reports: Other (See Below) Other Dermatologic History: open wound to rt ankle - Past Surgical History Head Surgeries/Procedures: Reports: None HEENT Surgical History: Reports: Oral Surgery Other HEENT Surgeries/Procedures: wisdom teeth extraction Female Surgical History: Reports: D&C Musculoskeletal Surgical History: Reports: Other (See Below) Other Musculoskeletal Surgeries/Procedures:: ORIF rt fx ankle, hardware removal to rt ankle - SUBSTANCE USE Smoking Status *Q: Former Smoker Tobacco Use Within Last Twelve Months: Cigarettes Recreational Drug Use History: No - HOME MEDS Home Medications: Home Meds DAPTOmycin [Cubicin] 500 mg IV DAILY 11/11/16 [History] - CURRENT (IN HOUSE) MEDS Current Meds: Current Medications Hydrocodone Bitart/Acetaminophen (Adams 325-5 Mg) 1 - 2 tab PO Q4H PRN PRN Reason: Pain Fentanyl (Sublimaze) 50 mcg IVPUSH Q5M PRN PRN Reason: Pain (severe 7-10) Stop: 11/13/16 08:39 Lactated Ringer's (Ringers, Lactated) 1,000 mls @ 100 mls/hr IV ASDIRECTED COMPA Daptomycin 500 mg/ Sodium (Chloride) 10 mls @ 300 mls/hr IVPUSH ONCALL COMPA Discontinued Medications Fentanyl (Sublimaze) Confirm Administered Dose 250 mcg .ROUTE .STK-MED ONE Stop: 11/12/16 07:19 Cefazolin Sodium/Dextrose 2 gm (/ Premix) 50 mls @ 100 mls/hr IV ONCALL COMPA Daptomycin 500 mg/ Sodium (Chloride) 10 mls @ 300 mls/hr IVPUSH ONCALL [facility] Lidocaine (Xylocaine-Mpf 2%) Confirm Administered Dose 5 ml .ROUTE .STK-MED ONE Stop: 11/12/16 07:19 Midazolam HCl (Versed 1 Mg/Ml) Confirm Administered Dose 2 mg .ROUTE .STK-MED ONE Stop: 11/12/16 07:19 Ondansetron HCl (Zofran) Confirm Administered Dose 4 mg .ROUTE .STK-MED ONE Stop: 11/12/16 07:19 Propofol (Diprivan 20 Ml) Confirm Administered Dose 200 mg .ROUTE .[facility]-MED ONE Stop: 11/12/16 07:19
[2016-11-12] MEDS ORDERED: diphenhydrAMINE 50 MG/ML SDV ONE (12:20)
[2016-11-12] MEDS ORDERED: Scopolamine 1.5 MG Transdermal Patch ONE (12:20)
[2016-11-12] MEDS ORDERED: Dexamethasone 4 MG/ML 5 ML MDV ONE (12:20)
[2016-11-12] MEDS ORDERED: Metoclopramide 10 MG/2 ML SDV ONE (12:20)
--- NOTE | 2016-11-12 12:37 | PCM.OPNOTE ---
- General Post-Op/Procedure Note Date of Surgery/Procedure: 11/12/16 Operative Procedure(s): Excisional debridement right ankle with VAC placement Post-Op Diagnosis: Infected right ankle infection Anesthesia Technique: General LMA Primary Surgeon: Flora Braga Paralegal: Joaquín Irizarry in mLs: 10 Condition: Good Free Text/Narrative:: #[id number]
--- NOTE | 2016-11-12 12:38 | PCM.POSTAN ---
POST ANESTHESIA ASSESSMENT - MENTAL STATUS Mental Status: Alert, Oriented - RESPIRATORY Respiratory Status: Respiratory Rate WNL, Airway Patent, O2 Saturation Stable - CARDIOVASCULAR CV Status: Pulse Rate WNL, Blood Pressure Stable - GASTROINTESTINAL GI Status: No Symptoms - POST OP HYDRATION Hydration Status: Adequate & Stable
--- NOTE | 2016-11-12 13:06 | PCM48HPAN ---
Post Anesthesia Note - EVALUATION WITHIN 48HRS OF ANESTHETIC Vital Signs in Normal Range: Yes Patient Participated in Evaluation: Yes Respiratory Function Stable: Yes Airway Patent: Yes Cardiovascular Function Stable: Yes Hydration Status Stable: Yes Pain Control Satisfactory: Yes (Required PO analgesic as ordered by surgeon) Nausea and Vomiting Control Satisfactory: Yes Mental Status Recovered: Yes - COMMENTS/OBSERVATIONS Free Text/Narrative:: Plan to go home with sister during the next hour.
[2016-11-12 15:40] VITALS: BP 128/80
--- NOTE | 2016-11-12 18:59 | OR ---
SURGEON: Flora Braga MD DATE OF PROCEDURE: 11/12/2016 PREOPERATIVE DIAGNOSIS: Right ankle wound infection. POSTOPERATIVE DIAGNOSIS: Right ankle wound infection. PROCEDURE: Excisional debridement right open ankle wound to bone with placement of VAC dressing. HEALTH OUTCOMES LIAISON: Joaquín Irizarry PA-C. ANESTHESIA: General. ESTIMATED BLOOD LOSS: 10 mL. TOURNIQUET TIME: 0 minutes. COMPLICATIONS: None. DVT PROPHYLAXIS: Not indicated. IMPLANTS USED: None. BRIEF HISTORY: Renea is a 36-year-old female, who has previously undergone open reduction and internal fixation of a right distal fibula fracture. She developed a superficial wound infection following the healing of the fracture. She subsequently underwent excisional debridement with removal of hardware. Unfortunately, she developed a dehiscence of the wound following that surgery. She has been on IV antibiotics. She has had a PICC line placed. Due to her lack of response to conservative treatment, I did recommend surgical intervention. The risks and goals of procedure were discussed with the patient and were documented preoperatively. She agreed to proceed. DESCRIPTION OF PROCEDURE: The patient was properly identified and brought to the operating room. She was transferred from the OR cart and placed on the operating room table in supine position. General anesthesia was administered. After adequate anesthesia was obtained, the right lower extremity was prepped in standard fashion using Betadine solution. It was then sterilely draped. A time-out was performed to ensure correct site and procedure. Preoperative antibiotics were held. The surgical site had been marked preoperatively. The wound was inspected. She had fibrinous tissue overlying the wound bed. This was debrided with a Bazan elevator. The remaining Monocryl sutures were removed. The wound did open. Granulation tissue was present, however, this was quite grungy. No obvious purulence was noted. The wound did track down to the bone. I did take wound cultures, both aerobic and anaerobic, along with an aerobic bone culture. This was sent for culture and sensitivity. Cubicin antibiotic was then given. The wound was then copiously irrigated with 6 L of normal saline using a Pulsavac cloud consultant. At the completion, the wound bed appeared clean. The skin edges were freshened. The tissue was quite Donahue and tight around the wound. I did try to delineate a separate deep layer, which was closed with 0 PDS. I was able to get near complete coverage of the distal fibula with the soft tissue. The VAC dressing pad was then contoured to the shape of the wound. The wound was measured prior to placement of the wound VAC. This measured approximately 70 mm in the superior to inferior plane. It was 25 mm in the anterior to posterior plane and had a depth of 14 mm. The back dressing was then placed into the wound. The covering was placed and the VAC was hooked up. This showed good suction of the VAC sponge. There did not appear to be any air leaks. It was set at continuous suction with 125 mmHg. The patient was then awakened from her anesthetic. She was transferred back to the operating room cart. She was brought to recovery room in stable condition. JULES HURTADO /[id number]
== END 2016-11-12 14:10 | disposition home or self-care (01) ==
LOC: MERGE 09:01 → MW.SDS 09:01
PROVIDERS: ATTEND Orthopaedic Surgery
DX: T81.4XXA Infection following a procedure, initial encounter (principal); L93.0 Discoid lupus erythematosus; D68.62 Lupus anticoagulant syndrome; J45.909 Unspecified asthma, uncomplicated; M79.7 Fibromyalgia; Z88.1 Allergy status to other antibiotic agents; Z88.6 Allergy status to analgesic agent; Z88.8 Allergy status to other drugs, medicaments and biological substances; Z91.040 Latex allergy status; Z91.048 Other nonmedicinal substance allergy status; Z98.890 Other specified postprocedural states; Z87.891 Personal history of nicotine dependence
CPT/HCPCS: 11044; 36415; 81025; 85652; 86140; 87070; 87075; 87205; A9270; J1100; J1200; J2250; J2405; J2765; J3010; 00400; J2704

== ENCOUNTER 2020-01-12 19:55 | Emergency (ER) | payer MEDICAID, OTHER ==
--- NOTE | 2020-01-12 20:39 | EDM.PDOC ---
ED HPI GENERAL MEDICAL PROBLEM - General Chief Complaint: Lower Extremity Injury/Pain Stated Complaint: BLOOD CLOT IN LEG Time Seen by Provider: 01/12/20 20:17 Source of Information: Reports: Patient History Limitations: Reports: No Limitations - History of Present Illness INITIAL COMMENTS - FREE TEXT/NARRATIVE: HISTORY AND PHYSICAL: History of present illness: Patient is a 39-year-old female who presents to the emergency room with complaints of right lower extremity pain. She reports she has a history of factor V and easily gets blood clots. She hit her kyle on the corner of the bed a few days ago and now has pain to her distal calf going up to behind the knee. She had gone to an emergency room elsewhere and she was informed they did not have access to lab work or ultrasound and recommended she come for evaluation. She denies any other injury, trauma or falls. She denies any numbness, tingling, saddle paresthesias. Patient denies any fever, chills, headache, change in vision, syncope or near syncope. Denies any chest pain, back pain, shortness of breath or cough. Denies any abdominal pain, nausea, vomiting, diarrhea, constipation or dysuria. Has not noted any blood in urine or stool. Patient has been eating and drinking appropriately. Review of systems: As per history of present illness and below otherwise all systems reviewed and negative. Past medical history: As per history of present illness and as reviewed below otherwise noncontributory. Surgical history: As per history of present illness and as reviewed below otherwise noncontributory. Social history: See social history for further information Family history: As per history of present illness and as reviewed below otherwise noncontributory. Physical exam: General: Well developed and well nourished 39 year old female. Alert and orientated x 3. Nontoxic in appearance and in no acute distress. Vital signs are stable and have been reviewed by me. Nursing notes were reviewed. HEENT: Atraumatic, normocephalic, pupils equal and reactive bilaterally, negative for conjunctival pallor or scleral icterus, mucous membranes moist, trachea midline. No drooling or trismus noted. No meningeal signs. No hot potato voice noted. Lungs: Clear to auscultation, breath sounds equal bilaterally. Normal work of breathing, no accessory muscles used. Heart: S1S2, regular rate and rhythm without overt murmur Abdomen: Soft, obese, nontender. Negative for masses or hepatosplenomegaly. Negative for costovertebral tenderness. Skin: Small bruise to the right anteriolateral kyle. Intact, warm, dry. No lesions or rashes noted. Hematologic: No petechiae or purpra. Mucosa appropriate color and normal nail bed color and refill. Extremities: Moves all extremities per self without difficulty or deficits, mild right calf tenderness. No redness or soft tissue swelling noted. Strong -pedal and pretibial pulses bilaterally. +Cap refill less than 3 seconds (good blood flow).Neurovascular unremarkable. Neuro: Awake, alert, oriented. Cranial nerves II through XII unremarkable. Cerebellum unremarkable. Motor and sensory unremarkable throughout. Exam nonfocal. Psychiatric: Mood and affect are appropriate. Normal thought process. Answering questions appropriately. Notes: Patient does have a small bruise to the right anterior/lateral mid kyle. She states she bumped into a dresser a few days ago. She has mild tenderness to the calf but states that the whole leg hurts. Due to her reported factor V I will do an ultrasound of the lower extremity to rule out blood clot. There is no evidence of cellulitis or any other systemic concerns. Lab work is unremarkable. Ultrasound shows normal venous ultrasound exam. No evidence of deep vein thrombosis within the right lower extremity. I have talked with the patient about today's findings, in addition to providing specific details for plan of care. Reassessment at the time of disposition demonstrates that the patient is in no acute distress. The patient is stable for discharge, counseling was provided and we discussed in great detail signs and symptoms that would prompt them to return to the Emergency Department. Medication, follow up and supportive care measures were reviewed and discussed. Voices understanding and is agreeable to plan of care. Denies any further questions or concerns at this time. Diagnostics: CBC, CMP, INR, Venous Ultrasound Therapeutics: None Prescription: None Impression: Leg Pain, Right Plan: 1. Today your lab work and lower extremity ultrasound were within normal limits. Rest, ice and elevate as able. 2. Tylenol as needed for pain management. 3. We encourage you to follow up with your primary care provider and/or early childhood education specialist for re-evaluation and further care/management. If your symptoms should worsen, new symptoms develop or any of the signs and symptoms we discussed should arise please return to the emergency room or call 911 (if needed). Definitive disposition and diagnosis as appropriate pending reevaluation and review of above. Right Leg Pain Score (Numeric/FACES): 6 - Related Data Allergies Allergy/AdvReac Type Severity Reaction Status Date / Time ketorolac [From Toradol] Allergy due to Verified 01/12/20 20:59 blood clotting disoder latex Allergy Rash Verified 01/12/20 20:59 miconazole Allergy Rash Verified 01/12/20 20:59 [From Neosporin AF] NSAIDS (Non-Steroidal Allergy Other Verified 01/12/20 20:59 Anti-Inflamma Tetracyclines Allergy Nausea and Verified 01/12/20 20:59 Vomiting tramadol Allergy Vomiting Verified 01/12/20 20:59 paper tape Allergy Rash Uncoded 07/15/16 19:07 Home Meds: Home Meds . [No Known Home Meds] 01/12/20 [History] Past Medical History HEENT History: Reports: Allergic Rhinitis, None Cardiovascular History: Reports: None Respiratory History: Reports: Asthma, Other (See Below) Other Respiratory History: sports induced asthma Gastrointestinal History: Reports: None Genitourinary History: Reports: None VIDEO PRODUCTION INTERN History: Reports: None, Musculoskeletal History: Reports: Fibromyalgia, Fracture Other Musculoskeletal History: hx of fx right ankle Neurological History: Reports: None Psychiatric History: Reports: Anxiety Endocrine/Metabolic History: Reports: Other (See Below), Obesity/BMI 30+ Other Endocrine/Metabolic History: has Systemic Lupus Erythematosus Hematologic History: Reports: Other (See Below) Other Hematologic History: factor V clotting disorder Immunologic History: Reports: Other (See Below), SLE Other Immunologic History: Lupus Oncologic (Cancer) History: Reports: None Dermatologic History: Reports: None, Other (See Below) Other Dermatologic History: open wound to rt ankle - Infectious Disease History Infectious Disease History: Reports: None - Past Surgical History Musculoskeletal Surgical History: Reports: None, Other (See Below), ORIF Social & Family History - Family History Family Medical History: No Pertinent Family History - Caffeine Use Caffeine Use: Reports: Coffee Review of Systems - Review of Systems Review Of Systems: Comprehensive ROS is negative, except as noted in HPI. ED EXAM, GENERAL - Physical Exam Exam: See Below (See dictation) Course - Vital Signs Last Recorded V/S: Last Vital Signs Temp 98.2 F 01/12/20 22:42 Pulse 90 01/12/20 22:42 Resp 18 01/12/20 22:42 BP 132/80 01/12/20 22:42 Pulse Ox 97 01/12/20 22:42 - Orders/Labs/Meds Labs: Laboratory Tests 01/12/20 01/12/20 01/12/20 Range/Units 20:47 20:47 20:47 WBC 8.32 (4.0-11.0) K/uL RBC 4.59 (4.30-5.90) M/uL Hgb 13.5 (12.0-16.0) g/dL Hct 40.1 (36.0-46.0) % MCV 87.4 (80.0-98.0) fL MCH 29.4 (27.0-32.0) pg MCHC 33.7 (31.0-37.0) g/dL RDW Std Deviation 40.1 (28.0-62.0) fl RDW Coeff of Lauren 13 (11.0-15.0) % Plt Count 276 (150-400) K/uL MPV 10.90 (7.40-12.00) fL Neut % (Auto) 50.9 (48.0-80.0) % Lymph % (Auto) 36.3 (16.0-40.0) % Harvey % (Auto) 9.4 (0.0-15.0) % Eos % (Auto) 3.2 (0.0-7.0) % Baso % (Auto) 0.2 (0.0-1.5) % Neut # (Auto) 4.2 (1.4-5.7) K/uL Lymph # (Auto) 3.0 H (0.6-2.4) K/uL Harvey # (Auto) 0.8 (0.0-0.8) K/uL Eos # (Auto) 0.3 (0.0-0.7) K/uL Baso # (Auto) 0.0 (0.0-0.1) K/uL Nucleated RBC % 0.0 /100WBC Nucleated RBCs # 0 K/uL INR 0.98 Sodium 139 (136-145) mmol/L Potassium 3.7 (3.5-5.1) mmol/L Chloride 103 (98-107) mmol/L Carbon Dioxide 22.2 (21.0-32.0) mmol/L BUN 22 H (7.0-18.0) mg/dL Creatinine 0.9 (0.6-1.0) mg/dL Est Cr Clr Drug Dosing 72.47 mL/min Estimated GFR (MDRD) > 60.0 ml/min Glucose 104 (74-106) mg/dL Calcium 8.6 (8.5-10.1) mg/dL Total Bilirubin 0.3 (0.2-1.0) mg/dL AST 18 (15-37) IU/L ALT 32 (14-63) IU/L Alkaline Phosphatase 83 (46-116) U/L Total Protein 7.6 (6.4-8.2) g/dL Albumin 3.8 (3.4-5.0) g/dL Globulin 3.8 (2.6-4.0) g/dL Albumin/Globulin Ratio 1.0 (0.9-1.6) Departure - Departure Time of Disposition: 21:58 Disposition: Home, Self-Care 01 Clinical Impression: Leg pain - Discharge Information Referrals: Juan Luis Jasmine Jr, PA-C [Primary Care Provider] - Forms: ED Department Discharge Additional Instructions: The following information is given to patients seen in the emergency department who are being discharged to home. This information is to outline your options for follow-up care. We provide all patients seen in our emergency department with a follow-up referral. The need for follow-up, as well as the timing and circumstances, are variable depending upon the specifics of your emergency department visit. If you don't have a primary care physician on staff, we will provide you with a referral. We always advise you to contact your personal physician following an emergency department visit to inform them of the circumstance of the visit and for follow-up with them and/or the need for any referrals to a consulting specialist. The emergency department will also refer you to a specialist when appropriate. This referral assures that you have the opportunity for follow-up care with a specialist. All of these measure are taken in an effort to provide you with optimal care, which includes your follow-up. Under all circumstances we always encourage you to contact your private physician who remains a resource for coordinating your care. When calling for follow-up care, please make the office aware that this follow-up is from your recent emergency room visit. If for any reason you are refused follow-up, please contact the [facility] Emergency Department at and asked to speak to the emergency department charge nurse. [facility] Primary Care [address] [place] [address] [facility] [address] [place] [id number] Thank you for choosing the [facility] emergency department in [place] for your medical needs today. It was a pleasure caring for you. Today you were seen in the emergency department for vaginal bleeding in . 1. Today your lab work and lower extremity ultrasound were within normal limits. Rest, ice and elevate as able. 2. Tylenol as needed for pain management. 3. We encourage you to follow up with your primary care provider and/or early childhood education specialist for re-evaluation and further care/management. If your symptoms should worsen, new symptoms develop or any of the signs and symptoms we discussed should arise please return to the emergency room or call 911 (if needed).
[2020-01-12 21:28] LABS: BLOOD UREA NITROGEN,BUN 22 mg/dL (7.0-18.0); CARBON DIOXIDE,CO2 22.2 mmol/L (21.0-32.0); CHLORIDE,CL 103 mmol/L (98-107); GLUCOSE RANDOM 104 mg/dL (74-106); POTASSIUM,K 3.7 mmol/L (3.5-5.1); SODIUM,NA 139 mmol/L (136-145)
--- NOTE | 2020-01-12 22:01 | US ---
INDICATION: Clotting disorder. Pain right lower leg. COMPARISON: None. TECHNIQUE: A compression venous ultrasound exam was performed of the right lower extremity using mccoy-scale imaging, color Doppler and spectral Doppler analysis. FINDINGS: Sonographic imaging of the right lower extremity demonstrates normal compressibility and color Doppler venous blood flow within the common femoral vein, deep femoral vein, and the proximal greater saphenous vein. Within the thigh, the femoral vein is patent and compressible. At a lower level, the popliteal and posterior tibial veins also show normal compressibility and color Doppler venous blood flow. Limited study due to the patient`s body habitus, but no definite DVT identified. Limited imaging of the contralateral groin demonstrates a normal spectral waveform and color Doppler venous blood flow within the left common femoral vein. IMPRESSION: Normal venous ultrasound exam. No evidence of deep vein thrombosis within the right lower extremity. Dictated by Lesly Bellamy MD @ Jan 12 2020 9:59PM Signed by Dr. Lesly Bellamy @ Jan 12 2020 9:59PM
[2020-01-12 23:03] VITALS: BP 132/80; PULSE 90
== END 2020-01-12 22:42 | disposition home or self-care (01) ==
LOC: MW.ED 19:55
DX: M79.661 Pain in right lower leg (principal); J45.909 Unspecified asthma, uncomplicated; E66.9 Obesity, unspecified; Z68.43 Body mass index [BMI] 50.0-59.9, adult; Z88.5 Allergy status to narcotic agent; Z91.040 Latex allergy status; Z88.8 Allergy status to other drugs, medicaments and biological substances; Z88.1 Allergy status to other antibiotic agents; Z91.048 Other nonmedicinal substance allergy status
CPT/HCPCS: 36415; 80053; 85025; 85610; 93971-26-RT; 93971-RT; 99283; 99284-25

== ENCOUNTER 2021-12-03 06:28 | Day surgery (SDC) | payer MEDICAID ==
[~2021-12-03 06:28] MED LIST changes: -Acetaminophen/HYDROcodone 325-5 MG Tab PO PRN; -DAPTOmycin 500 MG in Sodium Chloride 0.9% 10 ML IVPUSH SCH; +Enoxaparin 40 MG/0.4 ML Syringe SUBCUT ONE; -Lidocaine 2% 5 ML SDV ONE; -Midazolam 1 MG/ML 2 ML SDV ONE; -Ondansetron 4 MG/2 ML SDV ONE; -Propofol 200 MG/20 ML SDV ONE; +Scopolamine 1.5 MG Transdermal Patch TOP ONE; +Sodium Chloride 0.9% 10 ML Syringe FLUSH PRN; +Sodium Chloride 0.9% 2.5 ML Syringe FLUSH PRN; +Sodium Chloride 0.9% 20 ML SDV IV PRN; -ceFAZolin 2 GM in Premix Bag 1 BAG IV SCH; -fentaNYL 100 MCG/2 ML SDV IVPUSH PRN; -fentaNYL 250 MCG/5 ML SDV ONE
[2021-12-03] MEDS ORDERED: Scopolamine 1.5 MG Transdermal Patch TOP ONE (07:00)
[2021-12-03] MEDS ORDERED: fentaNYL 50 MCG/ML SDV IVPUSH PRN (07:14)
[2021-12-03] MEDS ORDERED: Ondansetron 4 MG/2 ML SDV IVPUSH PRN (07:14)
[2021-12-03] MEDS ORDERED: Naloxone 0.4 MG/ML SDV IVPUSH PRN (07:14)
[2021-12-03] MEDS ORDERED: Albuterol 0.083% 2.5 MG/3 ML Neb Soln NEB PRN (07:14)
[2021-12-03] MEDS ORDERED: Metoclopramide 10 MG/2 ML SDV IVPUSH PRN (07:14)
[2021-12-03] MEDS ORDERED: HYDROmorphone 1 MG/ML Syringe IVPUSH PRN (07:14)
[2021-12-03] MEDS ORDERED: propofoL 100 ML ONE (07:40)
[2021-12-03] MEDS ORDERED: Dexmedetomidine 200 MCG/2 ML SDV ONE (07:41)
[2021-12-03] MEDS ORDERED: Lidocaine 2% 5 ML SDV ONE (07:41)
[2021-12-03] MEDS ORDERED: Water For Injection, Sterile 20 ML ONE (07:41)
[2021-12-03] MEDS ORDERED: fentaNYL 100 MCG/2 ML SDV ONE (07:41)
[2021-12-03] MEDS ORDERED: Magnesium Sulfate (4.06 MEQ/ML) 5 GM/10 ML SDV ONE (07:52)
[2021-12-03] MEDS ORDERED: Ondansetron 4 MG/2 ML SDV ONE (08:06)
[2021-12-03] MEDS ORDERED: Ketorolac 30 MG/ML SDV ONE (08:06)
[2021-12-03] MEDS ORDERED: Acetaminophen 1,000 MG in Premix Bag 1 BAG IV ONE (09:38)
[2021-12-03 09:49] VITALS: BP 141/90; PULSE 72
== END 2021-12-03 10:05 | disposition home or self-care (01) ==
LOC: MW.SDS 06:28
PROVIDERS: ATTEND Obstetrics & Gynecology
DX: N92.1 Excessive and frequent menstruation with irregular cycle (principal); I10 Essential (primary) hypertension; E78.00 Pure hypercholesterolemia, unspecified; F90.9 Attention-deficit hyperactivity disorder, unspecified type; F41.9 Anxiety disorder, unspecified; G47.33 Obstructive sleep apnea (adult) (pediatric); E66.9 Obesity, unspecified; Z79.899 Other long term (current) drug therapy; Z88.1 Allergy status to other antibiotic agents; Z88.6 Allergy status to analgesic agent; Z91.040 Latex allergy status; Z98.890 Other specified postprocedural states; Z87.891 Personal history of nicotine dependence
CPT/HCPCS: 36415; 58558; 84703; 85027; A9270; J0131; J1650; J1885; J2405; J2704; J3010; J3475; J7120; 00952